=== PATIENT | female | born 1980 ===

== ENCOUNTER → 2019-10-20 | Outpatient (REF) | payer BC | LOC: M LAB REF 13:03 | PROVIDERS: ATTEND Internal Medicine | DX: F42.8 Other obsessive-compulsive disorder (principal); G43.829 Menstrual migraine, not intractable, without status migrainosus ==

== ENCOUNTER → 2021-02-21 | Outpatient (REF) | payer BC ==
[2021-02-22 13:36] LABS: PERCENT SATURATION 4.7 % (13.2-45.0)
== END ==
LOC: M LAB REF 12:34
PROVIDERS: ATTEND Internal Medicine
DX: D64.9 Anemia, unspecified (principal)

== ENCOUNTER → 2021-08-29 | Outpatient (REF) | payer BC ==
[2021-08-29 17:51] LABS: PERCENT SATURATION 7.7 % (13.2-45.0)
== END ==
LOC: M LAB REF 16:25
PROVIDERS: ATTEND Internal Medicine
DX: D64.9 Anemia, unspecified (principal)

== ENCOUNTER → 2022-02-26 | Outpatient (REF) | payer BC ==
[2022-02-26 17:47] LABS: PERCENT SATURATION 19.5 % (13.2-45.0)
== END ==
LOC: M LAB REF 16:26
PROVIDERS: ATTEND Internal Medicine
DX: D64.9 Anemia, unspecified (principal)

== ENCOUNTER → 2022-08-27 | Outpatient (REF) | payer BC ==
[2022-08-27 13:26] LABS: FERRITIN 14.2 NG/ML (7.3-270.7); PERCENT SATURATION 51.1 % (13.2-45.0)
== END ==
LOC: M LAB REF 12:14
PROVIDERS: ATTEND Internal Medicine
DX: D50.9 Iron deficiency anemia, unspecified (principal); M06.9 Rheumatoid arthritis, unspecified